=== PATIENT | female | born 1985 | race American Indian/Alaskan Native ===

== ENCOUNTER 2021-05-03 05:27 | Outpatient (CLI) | payer SELFPAY ==
[2021-05-03 07:07] VITALS: BP 119/75
[2021-05-03] MEDS ORDERED: LACTATED RINGERS 500 ML IV ONE (08:00)
== END 2021-05-03 07:57 | disposition home or self-care (01) ==
LOC: TRG 05:27 → APU 07:00 → TRG 07:57
PROVIDERS: ATTEND Obstetrics & Gynecology Gynecology
DX: Z34.93 Encounter for supervision of normal pregnancy, unspecified, third trimester (principal); Z3A.28 28 weeks gestation of pregnancy
CPT/HCPCS: 59025